=== PATIENT | male | born 1980 | race Caucasian/White ===

== ENCOUNTER 2019-03-18 10:25 | Emergency (ER) | payer OTHER ==
[~2019-03-18] VITALS: Ht 180.3 cm; Wt 81.6 kg
[2019-03-18 10:39] VITALS: BP 149/61
--- NOTE | 2019-03-18 10:47 | NUR ---
pt ambulated to bed 1.
--- NOTE | 2019-03-18 10:57 | NUR ---
38/M HOMELESS C/O LUQ ABD PAIN, N/V X TODAY. DENIES TRAUMA/INJURY.med hx : brain cancer, dm,HTN.ABDOMEN SOFT. PATIENT STATES PAIN OF 8/10 AT THIS TIME. PATIENT POSITIONED FOR COMFORT; HOB ELEVATED; BEDRAILS UP X1; BED DOWN. ER MD MADE AWARE OF PT STATUS.
[2019-03-18] MEDS ORDERED: ONDANSETRON 4 MG/2 ML VIAL IVP ONE (11:40)
[2019-03-18] MEDS ORDERED: NACL 0.9% 1,000 ML IV ONE (11:40)
--- NOTE | 2019-03-18 12:20 | NUR ---
PT TAKEN TO CT VIA W/C
--- NOTE | 2019-03-18 12:50 | NUR ---
BLOOD SPECIMENS SENT TO LAB
[2019-03-18 13:11] LABS: BASOPHILS % (AUTO) 0.6 % (0.0-2.0); EOSINOPHILS # (AUTO) 0.1 K/uL (0-0.4); EOSINOPHILS % (AUTO) 1.6 % (0.0-4.0); HEMOGLOBIN 10.8 g/dL (12.0-18.0); LYMPHOCYTES # (AUTO) 1.7 K/uL (2.0-11.5); LYMPHOCYTES % (AUTO) 22.2 % (20.5-51.1); MEAN CORPUSCULAR HEMOGLOBIN 33 pg (27-31); MEAN CORPUSCULAR HGB CONC 34 g/dL (33-37); MEAN CORPUSCULAR VOLUME 98.6 fL (80-94); MONOCYTES # (AUTO) 0.6 K/uL (0.8-1.0); MONOCYTES % (AUTO) 7.8 % (1.7-9.3); NEUTROPHILS # (AUTO) 5.1 K/uL (1.8-7.7); NEUTROPHILS % (AUTO) 67.8 % (42.2-75.2); PLATELET COUNT (AUTO) 357 K/uL (140-450); RED BLOOD CELL COUNT(AUTO) 3.25 MIL/uL (4.20-6.10); RED CELL DISTRIBUTION WIDTH 14.4 % (11.6-13.7); WHITE BLOOD COUNT (AUTO) 7.5 K/uL (4.8-10.8)
[2019-03-18 13:52] LABS: ALBUMIN 3.1 g/dL (3.4-5.0); ANION GAP 7.9 (8-16); CARBON DIOXIDE 30.4 mmol/L (21-32); CREATININE 0.7 mg/dL (0.7-1.3); POTASSIUM 3.3 mmol/L (3.5-5.1); TOTAL BILIRUBIN 0.5 mg/dL (0.0-1.0)
[2019-03-18] MEDS ORDERED: POTASSIUM CHLORIDE 10 MEQ TABER PO SCH (14:38)
[2019-03-18] MEDS ORDERED: MAGNESIUM OXIDE 400 MG TAB PO SCH (14:38)
[2019-03-18 15:07] VITALS: BP 134/84
== END 2019-03-18 15:06 | disposition home or self-care (01) ==
LOC: MED 10:25
DX: F11.10 Opioid abuse, uncomplicated (principal); R51 Headache; R10.12 Left upper quadrant pain; R11.10 Vomiting, unspecified; E87.6 Hypokalemia; E11.9 Type 2 diabetes mellitus without complications; I10 Essential (primary) hypertension; Z85.841 Personal history of malignant neoplasm of brain
CPT/HCPCS: 36415; 70450; 74176; 80053; 83690; 85025; 96361; 96374; 99284; J2405; J7030

== ENCOUNTER 2019-05-31 23:03 | Emergency (ER) | payer OTHER ==
[~2019-05-31] VITALS: Ht 172.7 cm; Wt 77.1 kg
[2019-05-31 23:03] VITALS: BP 128/88
--- NOTE | 2019-05-31 23:03 | NUR ---
SANTIAGO CASEY. TAKEN TO BED 1
--- NOTE | 2019-05-31 23:37 | NUR ---
38 Y/O MALE ROS, PRESENTS TO ED WITH ETOH INTOXICATION. PT WAS FOUND INFRONT OF STORE UNABLE TO VERBALIZE ANY INFORMATION ABOUT WELL BEING, PER EDUCATIONAL INTERPRETER. PT HAS BEEN DRINKING SEVERAL BOTTLES OF BEER. DURING ASSESSMENT AT ED, PT ONLY ALERT TO NAME. NO N/V/D NOTED. PT IS SLOW TO PROCESS WITH DELAYED, MUMBLED SPEECH. NO SOB/DIFFICULTY BREATHING NOTED. PT PLACED ON MONITOR. ERMD AWARE. WILL CONTINUE TO MONITOR.
--- NOTE | 2019-06-01 00:52 | NUR ---
URINE AND BLOOD OBTAINED. SENT TO LAB
[2019-06-01 00:53] LABS: BASOPHILS % (AUTO) 0.5 % (0.0-2.0); EOSINOPHILS # (AUTO) 0.1 K/uL (0-0.4); EOSINOPHILS % (AUTO) 1.2 % (0.0-4.0); HEMATOCRIT 40.6 % (36-52); HEMOGLOBIN 13.3 g/dL (12.0-18.0); LYMPHOCYTES # (AUTO) 2.1 K/uL (2.0-11.5); LYMPHOCYTES % (AUTO) 28.8 % (20.5-51.1); MEAN CORPUSCULAR HEMOGLOBIN 32 pg (27-31); MEAN CORPUSCULAR HGB CONC 33 g/dL (33-37); MEAN CORPUSCULAR VOLUME 97.7 fL (80-94); MONOCYTES # (AUTO) 0.6 K/uL (0.8-1.0); MONOCYTES % (AUTO) 8.2 % (1.7-9.3); NEUTROPHILS # (AUTO) 4.4 K/uL (1.8-7.7); NEUTROPHILS % (AUTO) 61.3 % (42.2-75.2); PLATELET COUNT (AUTO) 307 K/uL (140-450); RED BLOOD CELL COUNT(AUTO) 4.15 MIL/uL (4.20-6.10); RED CELL DISTRIBUTION WIDTH 12.7 % (11.6-13.7); WHITE BLOOD COUNT (AUTO) 7.2 K/uL (4.8-10.8)
[2019-06-01 00:54] LABS: APPEARANCE,URINE CLEAR (CLEAR); BILIRUBIN,URINE NEGATIVE (NEGATIVE); BLOOD, URINE NEGATIVE (NEGATIVE); COLOR,URINE YELLOW (YELLOW); LEUKOCYTE ESTERASE ,URINE NEGATIVE (NEGATIVE); NITRITE, URINE NEGATIVE (NEGATIVE); PH,URINE 5.5 (5.0-9.0); UGLUCOSE NEGATIVE (NEGATIVE)
[2019-06-01 01:04] LABS: ANION GAP 15.5 (8-16); CARBON DIOXIDE 27.3 mmol/L (21-32); CREATININE 0.7 mg/dL (0.7-1.3); POTASSIUM 3.8 mmol/L (3.5-5.1)
[2019-06-01 01:08] LABS: BARBITURATE, URINE NEG. ng/ml (NEG <=200); BENZODIAZEPINE, URINE NEG. ng/mL (NEG <=200); CANNABINOID, URINE NEG. ng/mL (NEG <=50); COCAINE, URINE NEG. ng/mL (NEG <=300); OPIATE, URINE POS. ng/mL (NEG <=2000); PHENCYCLIDINE SCREEN,URINE NEG. ng/mL (NEG <=25)
--- NOTE | 2019-06-01 01:48 | NUR ---
Pt resting in bed, rr even/unlabored. Pt arousable to painful stimuli. VSS
[2019-06-01 04:45] VITALS: BP 132/95
--- NOTE | 2019-06-01 04:45 | NUR ---
PT DISCHARGED WITH PAPERWORK. NO MEDICATION RX PROVIDED. EDUCATED PT REGARDING D/C DIAGNOSIS AND INSTRUCTIONS. PT VERBALIZED UNDERSTANDING OF TEACHING. TOLD PT TO FOLLOW UP WITH PCP AND WHEN TO RETURN TO ED. PT STABLE CONDITION. ABLE TO AMBULATE WITH SLOW STEADY GAIT. ALL QUESTIONS ANSWERED.
[2019-06-01] MEDS ORDERED: MORPHINE SULFATE 4 MG/ML SYR ONE (22:34)
== END 2019-06-01 04:45 | disposition home or self-care (01) ==
LOC: MED 23:03
DX: F10.129 Alcohol abuse with intoxication, unspecified (principal); F11.10 Opioid abuse, uncomplicated; F15.10 Other stimulant abuse, uncomplicated; E11.9 Type 2 diabetes mellitus without complications; I10 Essential (primary) hypertension; Y90.0 Blood alcohol level of less than 20 mg/100 ml
CPT/HCPCS: 36415; 80048; 80305; 81003; 85025; 99283; G0482; J2270

== ENCOUNTER 2019-10-17 07:21 | Emergency (ER) | payer OTHER ==
[~2019-10-17] VITALS: Ht 180.3 cm; Wt 72.6 kg
--- NOTE | 2019-10-17 07:32 | NUR ---
39 Y/O MALE BIB FRIEND FOR POSSIBLE OVER DOSE. PTS FRIEND SAID HE PICKED HIM UP FROM [facility]. PT ADMITS TO TAKING 2 PILLS OF UNKNOWN KIND. DENIES ALCOHOL USE. STATES HE HAS NEVER TAKEN THIS MED BEFORE. RR EVEN AND SHALLOW. HOB ELEVATED, PT POSITIONED FOR COMFORT. X 2 SIDE RAILS RAISED. MEDHX: UNOBTAINABLE ALLERGIES: UNOBTAINABLE
[2019-10-17 07:33] VITALS: BP 141/91
--- NOTE | 2019-10-17 07:33 | NUR ---
20G IV PLACED TO LT AC. PT TOLERATED WELL
--- NOTE | 2019-10-17 07:35 | NUR ---
PT ABLE TO GIVE URINE
[2019-10-17] MEDS ORDERED: NALOXONE PFS 2 MG/2 ML SYR IVP ONE (07:45)
[2019-10-17] MEDS ORDERED: NACL 0.9% 1,000 ML IV ONE (07:50)
[2019-10-17 07:59] LABS: BASOPHILS # (AUTO) 0.1 K/uL (0.00-0.22); BASOPHILS % (AUTO) 1.3 % (0.0-2.0); EOSINOPHILS # (AUTO) 0.8 K/uL (0-0.4); EOSINOPHILS % (AUTO) 10.2 % (0.0-4.0); HEMATOCRIT 38.6 % (36-52); LYMPHOCYTES # (AUTO) 1.9 K/uL (2.0-11.5); LYMPHOCYTES % (AUTO) 24.1 % (20.5-51.1); MEAN CORPUSCULAR HEMOGLOBIN 33 pg (27-31); MEAN CORPUSCULAR HGB CONC 34 g/dL (33-37); MEAN CORPUSCULAR VOLUME 98.2 fL (80-94); MONOCYTES # (AUTO) 0.6 K/uL (0.8-1.0); MONOCYTES % (AUTO) 7.5 % (1.7-9.3); NEUTROPHILS # (AUTO) 4.5 K/uL (1.8-7.7); NEUTROPHILS % (AUTO) 56.9 % (42.2-75.2); PLATELET COUNT (AUTO) 397 K/uL (140-450); RED BLOOD CELL COUNT(AUTO) 3.93 MIL/uL (4.20-6.10); RED CELL DISTRIBUTION WIDTH 13.4 % (11.6-13.7); WHITE BLOOD COUNT (AUTO) 7.8 K/uL (4.8-10.8)
--- NOTE | 2019-10-17 07:59 | NUR ---
PT REFUSES NARCAN, STATES HE DOESNT LIKE THE WAY IT MAKES HIM FEEL. DR MURPHY MADE AWARE
--- NOTE | 2019-10-17 07:59 | NUR ---
DR MURPHY AT BEDSIDE EXAMINING PT
--- NOTE | 2019-10-17 08:03 | NUR ---
JEAN-PAUL RETURNED TO [facility].
[2019-10-17 08:28] LABS: ALBUMIN 2.9 g/dL (3.4-5.0); ANION GAP 11.3 (8-16); ASPARTATE AMINOTRANSFERASE 39 U/L (15-37); CARBON DIOXIDE 29.2 mmol/L (21-32); CHLORIDE 101 mmol/L (98-107); CREATININE 1.1 mg/dL (0.6-1.3); GFR ARICAN-AMERICAN 95 mL/min (>90); GLUCOSE 180 mg/dL (74-106); POTASSIUM 3.5 mmol/L (3.5-5.1); SODIUM SERUM 138 mmol/L (136-145); TOTAL BILIRUBIN 0.3 mg/dL (0.0-1.0); UREA NITROGEN, BLOOD 14 mg/dL (7-18)
[2019-10-17 08:29] LABS: SALICYLATE < 2.8 mg/dL (2.8-20.0)
[2019-10-17 08:30] LABS: ACETAMINOPHEN < 0.5 ug/ml (10-30)
--- NOTE | 2019-10-17 09:30 | NUR ---
PT SITTING UPRIGHT AWAKE AND ALERT, GIVEN FOOD TRAY. REMAINS ON MONITOR. NO C/O PAIN. VSS. GCS 15. WILL CONTINUE TO MONITOR
[2019-10-17 09:44] LABS: BARBITURATE, URINE NEGATIVE ng/ml (NEG <=200); BENZODIAZEPINE, URINE NEGATIVE ng/mL (NEG <=200); CANNABINOID, URINE NEGATIVE ng/mL (NEG <=50); COCAINE, URINE NEGATIVE ng/mL (NEG <=300)
[2019-10-17 09:45] LABS: OPIATE, URINE POSITIVE ng/mL (NEG <=2000); PHENCYCLIDINE SCREEN,URINE NEGATIVE ng/mL (NEG <=25)
[2019-10-17 10:03] VITALS: BP 129/88
--- NOTE | 2019-10-17 10:04 | NUR ---
Patient discharged with v/s stable. Written and verbal after care instructions given and explained. Patient alert, oriented and verbalized understanding of instructions. Ambulatory with steady gait. All questions addressed prior to discharge. ID band removed. Patient advised to follow up with PMD. Rx of BACITRACIN, MOTRIN, KEFLEX given. Patient educated on indication of medication including possible reaction and side effects. Opportunity to ask questions provided and answered.
== END 2019-10-17 10:04 | disposition home or self-care (01) ==
LOC: MED 07:21
DX: L03.012 Cellulitis of left finger (principal); R40.4 Transient alteration of awareness; F17.200 Nicotine dependence, unspecified, uncomplicated; I10 Essential (primary) hypertension; F11.90 Opioid use, unspecified, uncomplicated; Z98.890 Other specified postprocedural states
CPT/HCPCS: 29515; 36415; 80053; 80305; 84484; 85025; 99284; G0480; G0482; 81002; 93005; J2310

== ENCOUNTER 2023-10-05 00:50 | Emergency (ER) | payer OTHER ==
[~2023-10-05] VITALS: Ht 175.3 cm; Wt 86.2 kg
[2023-10-05 00:50] VITALS: BP 152/97; PULSE 98; RESP 17; TEMP 98.1; O2SAT 97
== END 2023-10-05 00:55 | disposition home or self-care (01) ==
LOC: MED 00:50
DX: R10.9 Unspecified abdominal pain (principal); Z53.21 Procedure and treatment not carried out due to patient leaving prior to being seen by health care provider
CPT/HCPCS: 99281

== ENCOUNTER 2024-02-02 01:20 | Emergency (ER) | payer OTHER ==
[~2024-02-02] VITALS: Ht 180.3 cm; Wt 82.6 kg
[2024-02-02 01:35] VITALS: BP 135/83; PULSE 70; RESP 16; TEMP 98.1; O2SAT 94
[2024-02-02 01:37] VITALS: O2SAT 96
[2024-02-02 03:53] VITALS: BP 138/77; PULSE 61; RESP 15
[2024-02-02 03:54] VITALS: O2SAT 96
== END 2024-02-02 04:30 | disposition home or self-care (01) ==
LOC: MED 01:20
DX: F15.90 Other stimulant use, unspecified, uncomplicated (principal); F11.90 Opioid use, unspecified, uncomplicated; E11.9 Type 2 diabetes mellitus without complications; I10 Essential (primary) hypertension
CPT/HCPCS: 99283